=== PATIENT | female | born 1935 | race Caucasian/White ===

== ENCOUNTER 2019-02-19 00:51 | Emergency (ER) | payer MEDICARE ==
[2019-02-19] MEDS ORDERED: fentaNYL 100 MCG/2 ML SDV IVPUSH ONE (01:21)
[2019-02-19] MEDS ORDERED: Ondansetron 4 MG/2 ML SDV IVPUSH ONE (01:21)
--- NOTE | 2019-02-19 01:23 | EDM.PDOC ---
ED HPI GENERAL MEDICAL PROBLEM - General Chief Complaint: Abdominal Pain Stated Complaint: ABDOMINAL PAIN Time Seen by Provider: 02/19/19 01:14 Source of Information: Reports: Patient, Family, RN Notes Reviewed History Limitations: Reports: No Limitations - History of Present Illness INITIAL COMMENTS - FREE TEXT/NARRATIVE: 3-year-old female presents emergency department today complaint of sudden onset epigastric pain, she states the pain started about 3 hours prior sharp and stabbing she does have some nausea and vomiting with that as well. Otherwise fairly healthy takes really no medications no significant surgical history shoulder repair Middle Abdomen Pain Score (Numeric/FACES): 10 - Related Data Allergies Allergy/AdvReac Type Severity Reaction Status Date / Time codeine Allergy Confusion Verified 02/19/19 01:16 Penicillins Allergy Cannot Verified 02/19/19 01:15 Remember Sulfa (Sulfonamide Allergy Headache Verified 02/19/19 01:15 Antibiotics) Home Meds: Home Meds Gabapentin [Neurontin] 300 mg PO DAILY 02/19/19 [History] Losartan [Cozaar] 25 mg PO DAILY 02/19/19 [History] Past Medical History Cardiovascular History: Reports: Hypertension - Infectious Disease History Infectious Disease History: Reports: Chicken Pox, Measles, Mumps - Past Surgical History Musculoskeletal Surgical History: Reports: Shoulder Replacement Social & Family History - Tobacco Use Smoking Status *Q: Never Smoker - Caffeine Use Caffeine Use: Reports: Coffee, Soda, Tea ED ROS GENERAL - Review of Systems Review Of Systems: See Below Constitutional: Reports: No Symptoms HEENT: Reports: No Symptoms Respiratory: Reports: No Symptoms Cardiovascular: Reports: No Symptoms GI/Abdominal: Reports: Abdominal Pain, Flatus, Nausea, Vomiting : Reports: No Symptoms Musculoskeletal: Reports: No Symptoms ED EXAM, GI/ABD - Physical Exam Exam: See Below Exam Limited By: No Limitations General Appearance: Alert, Moderate Distress Respiratory/Chest: No Respiratory Distress, Lungs Clear, Normal Breath Sounds, No Accessory Muscle Use, Chest Non-Tender Cardiovascular: Regular Rate, Rhythm, No Murmur GI/Abdominal Exam: Normal Bowel Sounds, Soft, No Distention, Tender (Epigastric region) Back Exam: Normal Inspection, Full Range of Motion. No: CVA Tenderness (L) Course - Vital Signs Last Recorded V/S: Last Vital Signs Temp 97.7 F 02/19/19 01:10 Pulse 71 02/19/19 02:39 Resp 18 02/19/19 01:10 BP 164/74 H 02/19/19 02:39 Pulse Ox 94 L 02/19/19 02:51 - Orders/Labs/Meds Orders: Active Orders 24 hr Category Date Time Status Peripheral IV Care [RC] . DIRECTED Care 02/19/19 01:19 Active Iopamidol [Isovue-300 (61%)] Med 02/19/19 01:30 Active 88 ml IV . DIRECTED Lactated Ringers [Ringers, Lactated] 1,000 ml Med 02/19/19 01:30 Active IV ASDIRECTED Sodium Chloride 0.9% [Saline Flush] Med 02/19/19 01:19 Active 10 ml FLUSH ASDIRECTED PRN Peripheral IV Insertion Adult [OM.PC] Urgent Oth 02/19/19 01:19 Ordered Medication Orders Lactated Ringer's (Ringers, Lactated) 1,000 mls @ 500 mls/hr IV ASDIRECTED JANINE Last Admin: 02/19/19 01:38 Dose: 500 mls/hr Iopamidol (Isovue-300 (61%)) 88 ml IV . DIRECTED JANINE Last Admin: 02/19/19 02:18 Dose: 100 ml Sodium Chloride (Saline Flush) 10 ml FLUSH ASDIRECTED PRN PRN Reason: Keep Vein Open Last Admin: 02/19/19 02:18 Dose: 10 ml Admin: 02/19/19 01:46 Dose: 10 ml Labs: Laboratory Tests 02/19/19 02/19/19 02/19/19 Range/Units 01:33 01:33 01:33 WBC 10.6 (4.5-11.0) K/uL RBC 4.89 (3.30-5.50) M/uL Hgb 14.9 (12.0-15.0) g/dL Hct 43.8 (36.0-48.0) % MCV 90 (80-98) fL MCH 31 (27-31) pg MCHC 34 (32-36) % Plt Count 164 (150-400) K/uL Neut % (Auto) 78 H (36-66) % Lymph % (Auto) 11 L (24-44) % [place] % (Auto) 11 H (2-6) % Eos % (Auto) 0 L (2-4) % Baso % (Auto) 0 (0-1) % Sodium 142 (140-148) mmol/L Potassium 4.5 (3.6-5.2) mmol/L Chloride 106 (100-108) mmol/L Carbon Dioxide 24 (21-32) mmol/L Anion Gap 12.1 (5.0-14.0) mmol/L BUN 29 H (7-18) mg/dL Creatinine 0.7 (0.6-1.0) mg/dL Est Cr Clr Drug Dosing 43.74 mL/min Estimated GFR (MDRD) > 60 (>60) Glucose 187 H (74-106) mg/dL Lactic Acid 1.6 (0.4-2.0) mmol/L Calcium 9.6 (8.5-10.1) mg/dL Total Bilirubin 0.6 (0.2-1.0) mg/dL AST 43 H (15-37) U/L ALT 36 (12-78) U/L Alkaline Phosphatase 100 (46-116) U/L CK-MB (CK-2) 1.1 (0-3.6) mg/mL Troponin I < 0.017 (0.000-0.056) ng/mL Total Protein 6.9 (6.4-8.2) g/dL Albumin 3.9 (3.4-5.0) g/dL Globulin 3.0 (2.3-3.5) g/dL Albumin/Globulin Ratio 1.3 (1.2-2.2) Lipase 107 (73-393) U/L Urine Color Urine Appearance Urine pH (4.5-8.0) Ur Specific [place] (1.008-1.030) Urine Protein (NEGATIVE) mg/dL Urine Glucose (UA) (NEGATIVE) mg/dL Urine Ketones (NEGATIVE) mg/dL Urine Occult Blood (NEGATIVE) Urine Nitrite (NEGATIVE) Urine Bilirubin (NEGATIVE) Urine Urobilinogen (NORMAL) mg/dL Ur Leukocyte Esterase (NEGATIVE) Urine RBC (0-5) Urine WBC (0-5) Ur Epithelial Cells Amorphous Sediment Urine Bacteria Urine Mucus 02/19/19 Range/Units 01:41 WBC (4.5-11.0) K/uL RBC (3.30-5.50) M/uL Hgb (12.0-15.0) g/dL Hct (36.0-48.0) % MCV (80-98) fL MCH (27-31) pg MCHC (32-36) % Plt Count (150-400) K/uL Neut % (Auto) (36-66) % Lymph % (Auto) (24-44) % [place] % (Auto) (2-6) % Eos % (Auto) (2-4) % Baso % (Auto) (0-1) % Sodium (140-148) mmol/L Potassium (3.6-5.2) mmol/L Chloride (100-108) mmol/L Carbon Dioxide (21-32) mmol/L Anion Gap (5.0-14.0) mmol/L BUN (7-18) mg/dL Creatinine (0.6-1.0) mg/dL Est Cr Clr Drug Dosing mL/min Estimated GFR (MDRD) (>60) Glucose (74-106) mg/dL Lactic Acid (0.4-2.0) mmol/L Calcium (8.5-10.1) mg/dL Total Bilirubin (0.2-1.0) mg/dL AST (15-37) U/L ALT (12-78) U/L Alkaline Phosphatase (46-116) U/L CK-MB (CK-2) (0-3.6) mg/mL Troponin I (0.000-0.056) ng/mL Total Protein (6.4-8.2) g/dL Albumin (3.4-5.0) g/dL Globulin (2.3-3.5) g/dL Albumin/Globulin Ratio (1.2-2.2) Lipase (73-393) U/L Urine Color Yellow Urine Appearance Clear Urine pH 5.0 (4.5-8.0) Ur Specific [place] 1.030 (1.008-1.030) Urine Protein Negative (NEGATIVE) mg/dL Urine Glucose (UA) Normal (NEGATIVE) mg/dL Urine Ketones 50 H (NEGATIVE) mg/dL Urine Occult Blood Trace (NEGATIVE) Urine Nitrite Negative (NEGATIVE) Urine Bilirubin Negative (NEGATIVE) Urine Urobilinogen Normal (NORMAL) mg/dL Ur Leukocyte Esterase Moderate (NEGATIVE) Urine RBC 0-5 (0-5) Urine WBC 0-5 (0-5) Ur Epithelial Cells Rare Amorphous Sediment Not seen Urine Bacteria Moderate Urine Mucus Not seen Meds: Medications Generic Name Dose Route Start Last Admin Trade Name Freq PRN Reason Stop Dose Admin Lactated Ringer's 1,000 mls @ 500 mls/hr 02/19/19 01:30 02/19/19 01:38 Ringers, Lactated IV 500 mls/hr ASDIRECTED JANINE Administration Iopamidol 88 ml 02/19/19 01:30 02/19/19 02:18 Isovue-300 (61%) IV 100 ml . DIRECTED JANINE Administration Sodium Chloride 10 ml 02/19/19 01:19 02/19/19 02:18 Saline Flush FLUSH 10 ml ASDIRECTED PRN Administration Keep Vein Open Discontinued Medications Generic Name Dose Route Start Last Admin Trade Name Freq PRN Reason Stop Dose Admin Fentanyl 50 mcg 02/19/19 01:21 02/19/19 01:31 Sublimaze IVPUSH 02/19/19 01:22 50 mcg ONETIME ONE Administration Hydromorphone HCl 1 mg 02/19/19 01:49 02/19/19 01:53 Dilaudid IVPUSH 02/19/19 01:50 1 mg ONETIME ONE Administration Sodium Chloride 100 mls @ 3.5 mls/sec 02/19/19 01:29 02/19/19 02:18 Normal Saline IV 02/19/19 01:30 3.5 mls/sec ONETIME ONE Administration Ketorolac Tromethamine 30 mg 02/19/19 02:40 02/19/19 02:43 Toradol IVPUSH 02/19/19 02:41 30 mg ONETIME ONE Administration Ondansetron HCl 4 mg 02/19/19 01:21 02/19/19 01:30 Zofran IVPUSH 02/19/19 01:22 4 mg ONETIME ONE Administration Sodium Chloride 10 ml 02/19/19 01:28 02/19/19 01:46 Saline Flush FLUSH 02/19/19 01:29 10 ml ONETIME ONE Administration Departure - Departure Time of Disposition: 03:51 Disposition: Home, Self-Care 01 Condition: Fair Clinical Impression: Functional constipation - Discharge Information Instructions: Constipation, Adult, [id number] Referrals: PCP,None [Primary Care Provider] - Forms: ED Department Discharge Additional Instructions: plan is to increase MiraLAX to 1 capFull per day use the Toradol as needed for pain control, follow-up with your primary care physician in 3-5 days if no improvement call or return to the emergency department worsening of symptoms - My Orders Last 24 Hours: My Active Orders 02/19/19 01:19 Peripheral IV Care [RC] . DIRECTED Sodium Chloride 0.9% [Saline Flush] 10 ml FLUSH ASDIRECTED PRN Peripheral IV Insertion Adult [OM.PC] Urgent 02/19/19 01:30 Iopamidol [Isovue-300 (61%)] 88 ml IV . DIRECTED Lactated Ringers [Ringers, Lactated] 1,000 ml IV ASDIRECTED - Assessment/Plan Last 24 Hours: My Active Orders 02/19/19 01:19 Peripheral IV Care [RC] . DIRECTED Sodium Chloride 0.9% [Saline Flush] 10 ml FLUSH ASDIRECTED PRN Peripheral IV Insertion Adult [OM.PC] Urgent 02/19/19 01:30 Iopamidol [Isovue-300 (61%)] 88 ml IV . DIRECTED Lactated Ringers [Ringers, Lactated] 1,000 ml IV ASDIRECTED Plan: Assessment Acuity = acute Site and laterality = functional constipation Etiology = slow transit time Manifestations = [abdominal pain] Location of injury = Home Lab values = CBC, CMP unremarkable troponin was negative, urinalysis unremarkable CT scan shows no acute process Plan I did review lab work CT scan results with family copy of CT scan was provided she had good relief with the Toradol provided ED plan is to increase her MiraLAX to 1 capsule per day prescription for Toradol 10 mg 1 tab by mouth 3 times a day when necessary follow-up primary care 3-5 days This note was dictated using [employer] recognition software please call with any questions on syntax or grammar.
[2019-02-19] MEDS ORDERED: Sodium Chloride 0.9% 10 ML Syringe FLUSH ONE (01:28)
[2019-02-19] MEDS ORDERED: Sodium Chloride 0.9% 100 ML IV ONE (01:29)
[2019-02-19] MEDS ORDERED: Iopamidol 612 MG/ML 100 ML Bottle IV SCH (01:30)
[2019-02-19] MEDS ORDERED: Lactated Ringers 1,000 ML IV SCH (01:30)
[2019-02-19] MEDS: Sodium Chloride 0.9% 10 ML Syringe FLUSH PRN ×2 (01:46→02:18)
[2019-02-19] MEDS ORDERED: HYDROmorphone 1 MG/ML Syringe IVPUSH ONE (01:49)
[2019-02-19] MEDS ORDERED: Ketorolac 30 MG/ML SDV IVPUSH ONE (02:40)
--- NOTE | 2019-02-19 02:43 | CRLCT ---
INDICATION: Epigastric pain TECHNIQUE: CT abdomen and pelvis acquired with 88 cc Isovue 300 IV contrast. COMPARISON: None FINDINGS: Lower chest: Unremarkable. Liver: Unremarkable. Spleen: Unremarkable. Pancreas: Unremarkable. Gallbladder and bile ducts: Unremarkable. Adrenal glands: Unremarkable. Kidneys: Simple cyst on the right kidney. There is a 1.4 cm hypodense lesion on the superior pole the right kidney which measures 50 Hounsfield units in density. GI tract: Colonic diverticulosis. There is a single loop of fluid-filled small bowel in the left lateral abdomen measuring 2.3 cm in diameter. No pneumatosis or fat stranding around this bowel loop. No free air or free fluid. Vascular structures: Unremarkable. Lymph nodes: Unremarkable. Miscellaneous: Small fat containing umbilical hernia. No free air or significant free fluid. Pelvic Organs: Small calcified uterine fibroids. Bones: Unremarkable for age. IMPRESSION: Single loop of fluid filled but nondilated small bowel in the left lateral abdomen, nonspecific. Consider follow-up CT if patient`s symptoms persist. No free air free fluid. Hyperdense lesion on the right kidney may represent a hemorrhagic/proteinaceous cyst or neoplasm. Recommend nonemergent renal CT for further evaluation. Colonic diverticulosis. Small calcified uterine fibroids. Please note that all CT scans at this facility use dose modulation, iterative reconstruction, and/or weight-based dosing when appropriate to reduce radiation dose to as low as reasonably achievable. Dictated by Awilda Youssef MD @ Feb 19 2019 2:32AM Signed by Dr. Awilda Youssef @ Feb 19 2019 2:41AM
== END 2019-02-19 04:00 | disposition home or self-care (01) ==
LOC: JP.ED 00:51
DX: K59.04 Chronic idiopathic constipation (principal); I10 Essential (primary) hypertension; Z88.5 Allergy status to narcotic agent; Z88.0 Allergy status to penicillin; Z88.2 Allergy status to sulfonamides; Z79.899 Other long term (current) drug therapy
CPT/HCPCS: 36415; 74177; 80053; 81001; 82553; 83605; 83690; 84484; 85025; 96374; 96375; 99284; J1170; J1885; J2405; J3010; J7030; J7120; Q9967